=== PATIENT | female | born 1980 | race Native Hawaiian/Other Pacific Islander ===

== ENCOUNTER 2018-07-20 16:12 | Emergency (ER) | payer OTHER ==
[~2018-07-20] VITALS: Ht 160 cm; Wt 113.4 kg
[~2018-07-20 16:12] MED LIST: CLON0.5T36 PO; MICARDIS20 MG PO
[2018-07-20 18:10] LABS: PLATELET COUNT 248 K/uL (152-353)
[2018-07-20 19:18] VITALS: BP 139/67; TEMP 98
== END 2018-07-20 19:22 | disposition home or self-care (01) ==
LOC: ED 16:12
PROVIDERS: Family Medicine
DX: M62.838 Other muscle spasm (principal); X50.3XXA Overexertion from repetitive movements, initial encounter
CPT/HCPCS: 36415; 80053; 81000; 85027; 96374; 99284; J1885

== ENCOUNTER 2020-03-12 00:46 | Emergency (ER) | payer OTHER ==
[~2020-03-12] VITALS: Ht 160 cm; Wt 113.4 kg
[2020-03-12 00:56] VITALS: TEMP 98.9
[2020-03-12 02:36] LABS: PLATELET COUNT 232 K/uL (152-353)
[2020-03-12 02:38] LABS: POTASSIUM 3.9 mmol/L (3.6-5.2)
[2020-03-12 03:20] VITALS: BP 146/85
== END 2020-03-12 04:18 | disposition home or self-care (01) ==
LOC: ED 00:46
PROVIDERS: Family Medicine
DX: I10 Essential (primary) hypertension (principal); R51 Headache; F41.8 Other specified anxiety disorders
CPT/HCPCS: 36415; 80053; 81000; 85027; 85610; 85730; 99283